=== PATIENT | male | born 1985 ===

== ENCOUNTER 2024-12-05 10:05 | Emergency (ER) | payer OTHER, SELFPAY ==
--- NOTE | ~2024-12-05 | XR_ITS ---
EXAMINATION: XR FINGER, RIGHT CLINICAL INFORMATION: rt middle finger pain/swelling COMPARISON: None available. TECHNIQUE: Three views of the right third digit. FINDINGS: The bones are normal. No fracture. Alignment is anatomic. Joint spaces are maintained. There is soft tissue laceration to the tip of the third digit. There is no radiopaque foreign body. XR/XR finger RT min 2V IMPRESSION: No acute bony abnormalities. Soft tissue laceration to the tip of the third digit without radiopaque foreign body seen. Electronically signed by: Damian Rubio MD 12/05/2024 10:40 AM EDT
[2024-12-05 10:22] VITALS: BP 145/96; PULSE 88; RESP 16; TEMP 36.8; O2SAT 98; BMI 27.0
--- NOTE | 2024-12-05 12:49 | ED.EXTPRO ---
HPI - Extremity Problem General Chief complaint: Extremity Injury, Upper Stated complaint: finger issues Time Seen by Provider: 12/05/24 12:49 Source: patient and other (Female correspondent) Mode of arrival: ambulatory Limitations: no limitations History of Present Illness ED Provider: Eugenie Garcia PA-C HPI Narrative: This is a 39-year-old male who presents emergency department with concerns for right middle finger pain for the last month. Patient denies any known injury or trauma. He states that he typically gets very dry skin, and believes that the skin cracked, this is not healing well. He states that he has had worsening swelling and pain. No fevers or chills. He is right-hand dominant. 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 No other complaints or concerns at this time. MD Complaint: extremity pain Onset (ago): month(s) Pain Consistency: constant Location: right and upper extremity Quality: aching Radiation: none Relieving factors: nothing Exacerbating factors: nothing Associated symptoms: denies other symptoms Related Data Previous Rx's ?Medication ?Instructions ?Recorded acetaminophen 500 mg tablet 1,000 mg (2 x 500 mg) PO Q6H PRN 12/05/24 (Tylenol Extra Strength) fever or pain #30 tabs cephalexin 500 mg capsule 500 mg PO QID 5 days #20 caps 12/05/24 ibuprofen 600 mg tablet 600 mg PO Q6H PRN pain #30 tabs 12/05/24 Allergies Allergy/AdvReac Type Severity Reaction Status Date / Time No Known Allergies Allergy Verified 12/05/24 10:23 [No Known Allergies*] Review of Systems Review of Systems: Constitutional: No Weight loss, No Fever, No Chills, No Night Sweats, No Fatigue, No Malaise ENT/Mouth: No Hearing loss, No Ear Pain, No Nasal Congestion, No Sinus Pain, No Hoarseness, No sore throat, No Rhinorrhea, No Swallowing Difficulty Eyes: No Eye Pain, No Swelling, No Redness, No Foreign Body, No Discharge, No Vision Changes Cardiovascular: No Chest Pain, No SOB, No Dyspnea on Exertion, No Orthopnea, No Edema, No Palpitations Respiratory: No Cough, No Sputum, No Wheezing, No Smoke Exposure, No Dyspnea Gastrointestinal: No Nausea, No Vomiting, No Diarrhea, No Constipation, No Abdominal pain, No Hematochezia, No Melena Genitourinary: No irregular bleeding, No Dysuria, No Urinary Frequency, No Hematuria, No Urinary Incontinence/retention, No Urgency, No Flank Pain, No Urinary Flow Changes, No Hesitancy Musculoskeletal: No joint pain, No Myalgias, No Joint Swelling Skin: No Skin Lesions, No rash Neuro: No Weakness, No Numbness, No Paresthesias, No Loss of Consciousness, No Dizziness, No Headache Psych: No Anxiety/Panic, No Depression, No SI/HI/AH/VH, No Social Issues, Heme/Lymph: No Bruising, No Bleeding,No Lymphadenopathy Endocrine: No Polyuria, No Polydipsia, No Temperature Intolerance Yes all other systems are reviewed and are negative Constitutional: Constitutional: Reports as per [facility] Social History Social History Do you have a plan to hurt others: No Plan Physical Exam Vital Signs: Vital Signs: Last Vital Signs Temp 98.2 F 12/05/24 10:22 Pulse 88 12/05/24 10:22 Resp 16 12/05/24 10:22 BP 145/96 H 12/05/24 10:22 Pulse Ox 98 12/05/24 10:22 O2 Del Method Room Air 12/05/24 10:22 BMI result Body Mass Index 27.0 Const: Other: General: Awake, alert, and oriented X3. No acute distress. HEENT: Normal inspection CVS: Normal heart rate and rhythm. Pulses normal. Respiratory: No respiratory distress Skin: Right middle 3rd digit with open wound, with tenderness palpation, with surrounding erythema and warmth. No drainage, full ROM of the PIP and PIP. Strong radial pulse. Extremities: See above Neuro: Oriented X 3. No motor deficit. No sensory deficit. Medical Decision Making Medical Decision Making MDM Narrative: This is a 39-year-old Togolese-speaking male who presents emergency department with complaints of right middle finger pain for the last month. Patient denies any known injury or trauma. On arrival, his vital signs reveal that he was slightly hypertensive at 145/96, no other abnormal vital signs. He is speaking full sentences under no acute distress. Right middle 3rd digit with chronic open wound noted, measuring approximately 2 mm, with no surrounding erythema, drainage. Full ROM of the DIP and PIP. Strong radial pulse. Capillary refill less than 2 seconds. X-rays were obtained prior to my assessment, this was reviewed as no acute bony abnormalities, there is soft tissue laceration to the tip of the 3rd digit without radiopaque foreign body seen. Discussed findings with patient and female correspondent at bedside. Updated tetanus in the department. Wound is old, no active bleeding however does have some mild surrounding erythema noted. Will treat as skin infection. Given strict return precautions. He understands and agrees with plan. Patient stable for discharge. Differential Diagnosis Differential Diagnoses: The differential diagnosis associated with the presentation includes Chronic wound, laceration, cellulitis Radiology Impression Discussion of test interpretation with radiology: I have reviewed the radiologist's reading. Radiologist Impression: EXAMINATION: XR FINGER, RIGHT CLINICAL INFORMATION: rt middle finger pain/swelling COMPARISON: None available. TECHNIQUE: Three views of the right third digit. FINDINGS: The bones are normal. No fracture. Alignment is anatomic. Joint spaces are maintained. There is soft tissue laceration to the tip of the third digit. There is no radiopaque foreign body. XR/XR finger RT min 2V IMPRESSION: No acute bony abnormalities. Soft tissue laceration to the tip of the third digit without radiopaque foreign body seen. Electronically signed by: Damian Rubio MD 12/05/2024 10:40 AM EDT RP Dictated By: Damian Rubio MD Discharge Plan Discharge Clinical Impression: Cellulitis of finger, right Patient Disposition: Home, Self-Care Instructions: Cellulitis (ED) Additional Instructions: You were seen in the emergency department due to right middle finger pain. You have an open wound, with the start of a skin infection, please take with course of antibiotics as prescribed. Finish the entire course even if your symptoms improve. Please soak your finger 5-6 times per day in warm soapy water. Keep wound covered. You may alternate between ibuprofen and or Tylenol as needed for pain. Watch for any new or worsening symptoms including but not limited to increased redness, fevers, chills, swelling. If any of these occur, please seek emergent care. We updated your tetanus shot in the department today. Please update your records. Prescriptions: New cephalexin 500 mg capsule 500 mg PO QID 5 Days Qty: 20 0RF acetaminophen [Tylenol Extra Strength] 500 mg tablet 1,000 mg PO Q6H PRN (Reason: fever or pain) Qty: 30 0RF ibuprofen 600 mg tablet 600 mg PO Q6H PRN (Reason: pain) Qty: 30 0RF Stand Alone Forms: Work/School Release Print Language: Togolese
[2024-12-05] MEDS: Diphth,Pertus(ACell),Tet Adult 0.5 ML SYRINGE IM (13:36)
[2024-12-05 13:42] VITALS: BP 142/98; PULSE 64; RESP 18; TEMP -17.7; TEMP 0; O2SAT 99
--- OUTSIDE RECORDS SUMMARY | 2024-12-05 15:39 | XMS_ITS | Clinical Summary ---
Author Organization [facility] ity Address [address] [place] [address] Care Team Providers Care Telemetry Rn Name Role Phone Unavailable Primary Care Provider Unavailabl e Social History Tobacco Use Types Packs/Day Years Used Date Smoking Tobacco: Never Assessed Sex and Gender Information Value Date Recorded Sex Assigned at Not on file Legal Sex Male 4:50 AM EST Gender Identity Not on file Sexual Orientation Not on file Plan of Treatment Health Maintenance Due Date Last Done Comments DTaP,Tdap,and Td Vaccines (1 - Tdap) 2005 Hepatitis B Vaccines (1 of 3 - 19+ 3-dose series) 2005 COVID-19 Vaccine (2023-2 5 season) 2024 Cholesterol Screening (Lipid Panel) 06/04/2024 Depression Screening 06/04/2024 HIV Screening 06/04/2024 Hepatitis C Screening 06/04/2024 Social Influencers of Health Screening 06/04/2024 Influenza Vaccine (Season Ended) 2025 HIB Vaccines Aged Out No longer eligi ble based on patient's age to complete this topic HPV Vaccines Aged Out No longer eligi ble based on patient's age to complete this topic Hepatitis A Vaccines Aged Out No long er eligible based on patient's age to complete this topic IPV Vaccines Aged Out No longer eligi ble based on patient's age to complete this topic MMR Vaccines Aged Out No longer eligi ble based on patient's age to complete this topic Meningococcal ACWY Vaccine Aged Out N o longer eligible based on patient's age to complete this topic Meningococcal B Vaccine Aged Out No l onger eligible based on patient's age to complete this topic Pneumococcal Vaccine: Pediat rics (0 to 5 Years) and At-Risk Patients (6 to 64 Years) Aged Out No longer eligible b ased on patient's age to complete this topic RSV Immunization Patients Un filiberto 20 months Aged Out No longer eligible b ased on patient's age to complete this topic Varicella Vaccines Aged Out No longer eligible based on patient's age to complete this topic
== END 2024-12-05 13:43 | disposition home or self-care (01) ==
LOC: HO.ED 13:12
PROVIDERS: Emergency Provider Emergency Medicine Emergency Medical Services
DX: S61.202A Unspecified open wound of right middle finger without damage to nail, initial encounter (principal); L03.011 Cellulitis of right finger; M79.644 Pain in right finger(s); X58.XXXA Exposure to other specified factors, initial encounter; Y93.9 Activity, unspecified; Y92.9 Unspecified place or not applicable; Y99.8 Other external cause status; Z23 Encounter for immunization
CPT/HCPCS: 73140; 90471; 90715; 99282; 99284

== ENCOUNTER → 2024-12-05 10:30 | Outpatient (BNV) | payer OTHER, SELFPAY | PROVIDERS: Visit Provider Radiology Diagnostic Radiology | DX: S61.212A Laceration without foreign body of right middle finger without damage to nail, initial encounter (principal) | CPT/HCPCS: 73140 ==